=== PATIENT | male | born 1955 | race Caucasian/White ===

== ENCOUNTER 2019-05-12 08:26 | Observation (INO) | payer BC, OTHER ==
[~2019-05-12 08:26] MED LIST: CEFAZOLIN 2 GM/50 ML (PMX) 50 ML IVPB; LACTATED RINGER'S 1,000 ML IV
[2019-05-12] MEDS ORDERED: MIDAZOLAM 1 MG/ML 2 ML INJ (11:43)
[2019-05-12] MEDS: POLYMYXIN/BACITRACIN 1L IRRIG (12:51)
[2019-05-12] MEDS: GELATIN SIZE 100 SPONGE (12:51)
[2019-05-12] MEDS: BUPIVACAINE 0.5%/EPI (SDV) 30 ML INJ (12:51)
[2019-05-12] MEDS: THROMBIN 5000 UNIT (RECOTHROM) VIAL ×2 (12:51→15:03)
[2019-05-12] MEDS ORDERED: morphine 10 MG INJ (13:44)
[2019-05-12] MEDS ORDERED: PHENYLephrine 10 MG INJ (14:28)
[2019-05-12] MEDS ORDERED: PROPOFOL 20 ML (14:48)
[2019-05-12] MEDS ORDERED: LIDOCAINE 2% (SDV) 5 ML INJ (14:48)
[2019-05-12] MEDS ORDERED: ETOMIDATE 20 MG INJ (14:48)
[2019-05-12] MEDS ORDERED: CEFAZOLIN 1 GM INJ (15:10)
[2019-05-12] MEDS ORDERED: GLYCOPYRROLATE 0.4 MG INJ (15:10)
[2019-05-12] MEDS ORDERED: ONDANSETRON 4 MG INJ (15:10)
[2019-05-12] MEDS ORDERED: NEOSTIGMINE 3 MG/3 ML SYRINGE (15:10)
[2019-05-12] MEDS ORDERED: HYDROmorphONE 0.5 MG/0.5 ML SYG IV (15:30)
[2019-05-12] MEDS ORDERED: NALOXONE (0.4 MG/ML) INJ IV (15:30)
[2019-05-12] MEDS ORDERED: NACL 0.9% 3 ML SYG IV (15:30)
[2019-05-12] MEDS ORDERED: FENTAnyl 50 MCG/ML VIAL IV (15:30)
[2019-05-12] MEDS ORDERED: ONDANSETRON 4 MG INJ IV (15:30)
[2019-05-12] MEDS ORDERED: DIPHENHYDRAMINE 50 MG INJ IV (15:30)
[2019-05-12] MEDS ORDERED: MEPERIDINE 25 MG INJ IV (15:30)
[2019-05-12] MEDS ORDERED: METOCLOPRAMIDE 10 MG INJ IV (15:30)
[2019-05-12] MEDS ORDERED: ACETAMINOPHEN 325 MG TAB PO (15:30)
[2019-05-12 15:59] LABS: HAAIG REFLEX REFLEX FILED
[2019-05-12 17:05] LABS: HEPATITIS B SURFACE ANTIGEN NEGATIVE (NEGATIVE)
[2019-05-12 17:22] LABS: HEPATITIS B CORE ANTIBODY NEGATIVE (NEGATIVE); HEPATITIS C VIRAL ANTIBODY NEGATIVE (NEGATIVE); HIV 1&2 ANTIBODY NEGATIVE (NEGATIVE)
[2019-05-12] MEDS: CEFAZOLIN 1 GM/50 ML (PMX) 50 ML IVPB (17:56)
[2019-05-12] MEDS: hydrALAzine 20 MG INJ IV ×2 (17:56→18:32)
[2019-05-12] MEDS: HYDROmorphONE 1 MG/5 ML IV SYRINGE IV ×3 (18:34→19:26)
[2019-05-12] MEDS: LABETALOL HCL 20MG INJ IV ×3 (18:49→19:24)
[2019-05-12] MEDS: DESMOPRESSIN 0.01% 5 ML NASAL NASAL (19:16)
[2019-05-12] MEDS ORDERED: DEXTROSE 50% 50 ML SYRINGE IV ×2 (20:00)
[2019-05-12] MEDS ORDERED: GLUCAGON 1 MG INJ IM (20:00)
[2019-05-12] MEDS ORDERED: GLUCOSE GEL 15 GRAM TUBE PO ×2 (20:00)
[2019-05-12] MEDS ORDERED: GLUCOSE GEL 15 GRAM TUBE BUCCAL (20:00)
[2019-05-12 20:37] LABS: ADD MAN DIFF? NO
[2019-05-12 20:40] LABS: BASOPHIL # 0.1 10^3/ul (0.0-0.1); BASOPHILS % 0.7 % (0.0-2.0); EOSINOPHILS % 0.2 % (0.0-7.0); HEMATOCRIT 53.8 % (42.0-52.0); HEMOGLOBIN 17.5 g/dl (14.0-18.0); LYMPHOCYTES # 1.1 10^3/ul (0.8-2.9); LYMPHOCYTES % 8.1 % (15.0-51.0); MEAN CORPUSCULAR HEMOGLOBIN 27.9 pg (29.0-33.0); MEAN CORPUSCULAR HGB CONC 32.5 g/dl (32.0-37.0); MEAN CORPUSCULAR VOLUME 85.7 fl (82.0-101.0); MONOCYTE # 1.3 10^3/ul (0.3-0.9); MONOCYTES % 9.1 % (0.0-11.0); NEUTROPHIL # 11.2 10^3/ul (1.6-7.5); NEUTROPHILS % 81.2 % (39.0-77.0); PLATELET COUNT 153 10^3/UL (140-415); RED BLOOD COUNT 6.28 10^6/ul (4.70-6.10); RED CELL DISTRIBUTION WIDTH 15.2 % (11.5-14.5)
[2019-05-12 20:40] LABS: WHITE BLOOD COUNT 13.8 10^3/ul (4.8-10.8)
[2019-05-12 20:56] LABS: ANION GAP 8 (5-13); BLOOD UREA NITROGEN 24 mg/dl (7-20); CARBON DIOXIDE 31 mmol/L (21-31); CHLORIDE 100 mmol/L (97-110); CREATININE 1.46 mg/dl (0.61-1.24); GLUCOSE 192 mg/dl (70-220); POTASSIUM 3.3 mmol/L (3.5-5.1); SODIUM 139 mmol/L (135-144)
[2019-05-12 20:57] LABS: ALANINE AMINOTRANSFERASE 133 IU/L (13-69); ALBUMIN 3.9 g/dl (3.3-4.9); ALBUMIN/GLOBULIN RATIO 1.39; ALKALINE PHOSPHATASE 122 IU/L (42-121); ASPARTATE AMINO TRANSFERASE 190 IU/L (15-46); BILIRUBIN,INDIRECT 0.8 mg/dl (0-1.1); BILIRUBIN,TOTAL 0.8 mg/dl (0.2-1.3); CALCIUM 8.7 mg/dl (8.4-10.2); Estimated GFR 49 mL/min (>60); TOTAL PROTEIN 6.7 g/dl (6.1-8.1)
[2019-05-12] MEDS: INSULIN ASPART [NOVOLOG] 3 ML PEN SC (21:00)
[2019-05-12] MEDS: NEBIVOLOL 5 MG TAB PO (21:00)
[2019-05-12] MEDS: ATORVASTATIN 10 MG TAB PO (21:24)
[2019-05-12] MEDS: AMLODIPINE 10 MG TAB PO (21:26)
[2019-05-12] MEDS: SOD CHLORIDE 0.45% 1,000 ML IV (21:27)
[2019-05-12] MEDS: HYDROCORTISONE 100 MG INJ IV (21:27)
[2019-05-12] MEDS: LOSARTAN 50 MG TAB PO (21:28)
[2019-05-12] MEDS: HYDROCORTISONE 5 MG TAB PO (21:29)
[2019-05-12] MEDS: PROCHLORPERAZINE 10 MG TAB PO (21:29)
[2019-05-12] MEDS: ONDANSETRON 4 MG INJ IV (21:55)
[2019-05-12] MEDS: INSULIN GLARGINE [LANTus] (100 UNITS/ML) SYG SC (22:43)
[2019-05-13] MEDS: CEFAZOLIN 1 GM/50 ML (PMX) 50 ML IVPB ×3 (00:17→11:13)
[2019-05-13] MEDS: 1/2 NS + KCL 20 MEQ 1,000 ML IV (04:24)
[2019-05-13 05:37] LABS: HEMOGLOBIN 16.2 g/dl (14.0-18.0)
[2019-05-13 06:07] LABS: ALANINE AMINOTRANSFERASE 96 IU/L (13-69); ALBUMIN 3.5 g/dl (3.3-4.9); ALBUMIN/GLOBULIN RATIO 1.34; ALKALINE PHOSPHATASE 93 IU/L (42-121); ANION GAP 8 (5-13); ASPARTATE AMINO TRANSFERASE 69 IU/L (15-46); BILIRUBIN,INDIRECT 0.8 mg/dl (0-1.1); BILIRUBIN,TOTAL 0.8 mg/dl (0.2-1.3); BLOOD UREA NITROGEN 26 mg/dl (7-20); CALCIUM 8.4 mg/dl (8.4-10.2); CARBON DIOXIDE 33 mmol/L (21-31); CHLORIDE 98 mmol/L (97-110); CREATININE 1.41 mg/dl (0.61-1.24); Estimated GFR 51 mL/min (>60); GLUCOSE 219 mg/dl (70-220); POTASSIUM 3.3 mmol/L (3.5-5.1); SODIUM 139 mmol/L (135-144); TOTAL PROTEIN 6.1 g/dl (6.1-8.1)
[2019-05-13] MEDS: LEVOTHYROXINE 175 MCG TAB PO (06:23)
[2019-05-13] MEDS: INSULIN ASPART [NOVOLOG] 3 ML PEN SC ×6 (09:02→20:21)
[2019-05-13] MEDS: HYDROCORTISONE 5 MG TAB PO ×2 (09:12→20:20)
[2019-05-13] MEDS: CHLORTHALIDONE 25 MG TAB PO (09:13)
[2019-05-13] MEDS: DOCUSATE SODIUM 100 MG CAP PO ×2 (09:13→20:19)
[2019-05-13] MEDS: AMLODIPINE 10 MG TAB PO (09:14)
[2019-05-13] MEDS: INSULIN GLARGINE [LANTus] (100 UNITS/ML) SYG SC ×2 (09:16→20:22)
[2019-05-13] MEDS: DESMOPRESSIN 0.01% 5 ML NASAL NASAL (09:17)
[2019-05-13] MEDS: POTASSIUM CHLORIDE (SR) 20 MEQ TAB PO (10:41)
[2019-05-13 10:46] LABS: HEMOGLOBIN A1C 8.1 % (0-5.9)
[2019-05-13] MEDS: HYDROCODONE/APAP (5/325) TAB PO ×3 (13:05→18:26)
[2019-05-13] MEDS: AL HYDROX/MG HYDROX/SIMETH 30 ML CUP PO (13:05)
[2019-05-13] MEDS: LOSARTAN 50 MG TAB PO (20:19)
[2019-05-13] MEDS: ATORVASTATIN 10 MG TAB PO (20:20)
[2019-05-13] MEDS: NEBIVOLOL 5 MG TAB PO (20:20)
[2019-05-14] MEDS: HYDROCODONE/APAP (5/325) TAB PO ×5 (02:37→21:39)
[2019-05-14 05:07] LABS: ADD MAN DIFF? NO
[2019-05-14 05:13] LABS: BASOPHIL # 0.1 10^3/ul (0.0-0.1); BASOPHILS % 0.8 % (0.0-2.0); EOSINOPHILS # 0.1 10^3/ul (0.0-0.5); EOSINOPHILS % 0.6 % (0.0-7.0); HEMATOCRIT 46.5 % (42.0-52.0); HEMOGLOBIN 15.1 g/dl (14.0-18.0); LYMPHOCYTES # 1.5 10^3/ul (0.8-2.9); LYMPHOCYTES % 10.6 % (15.0-51.0); MEAN CORPUSCULAR HEMOGLOBIN 27.9 pg (29.0-33.0); MEAN CORPUSCULAR HGB CONC 32.5 g/dl (32.0-37.0); MEAN PLATELET VOLUME 12.4 fl (7.4-10.4); MONOCYTE # 1.4 10^3/ul (0.3-0.9); MONOCYTES % 9.6 % (0.0-11.0); NEUTROPHIL # 10.9 10^3/ul (1.6-7.5); NEUTROPHILS % 77.8 % (39.0-77.0); PLATELET COUNT 149 10^3/UL (140-415); RED BLOOD COUNT 5.41 10^6/ul (4.70-6.10); RED CELL DISTRIBUTION WIDTH 14.9 % (11.5-14.5)
[2019-05-14 05:33] LABS: ALANINE AMINOTRANSFERASE 61 IU/L (13-69); ALBUMIN 3.2 g/dl (3.3-4.9); ALBUMIN/GLOBULIN RATIO 1.23; ALKALINE PHOSPHATASE 72 IU/L (42-121); ANION GAP 4 (5-13); ASPARTATE AMINO TRANSFERASE 34 IU/L (15-46); BILIRUBIN,INDIRECT 1.1 mg/dl (0-1.1); BILIRUBIN,TOTAL 1.1 mg/dl (0.2-1.3); BLOOD UREA NITROGEN 31 mg/dl (7-20); CALCIUM 8.1 mg/dl (8.4-10.2); CARBON DIOXIDE 33 mmol/L (21-31); CHLORIDE 97 mmol/L (97-110); CREATININE 1.26 mg/dl (0.61-1.24); Estimated GFR 58 mL/min (>60); GLUCOSE 129 mg/dl (70-220); POTASSIUM 3.5 mmol/L (3.5-5.1); SODIUM 134 mmol/L (135-144); TOTAL PROTEIN 5.8 g/dl (6.1-8.1)
[2019-05-14] MEDS: INSULIN ASPART [NOVOLOG] 3 ML PEN SC ×7 (08:30→21:00)
[2019-05-14] MEDS: AMLODIPINE 10 MG TAB PO (08:57)
[2019-05-14] MEDS: DOCUSATE SODIUM 100 MG CAP PO ×2 (08:57→21:30)
[2019-05-14] MEDS: HYDROCORTISONE 5 MG TAB PO ×2 (08:58→21:29)
[2019-05-14] MEDS: CHLORTHALIDONE 25 MG TAB PO (08:58)
[2019-05-14] MEDS: DESMOPRESSIN 0.01% 5 ML NASAL NASAL (08:59)
[2019-05-14] MEDS: INSULIN GLARGINE [LANTus] (100 UNITS/ML) SYG SC ×2 (10:33→21:40)
[2019-05-14] MEDS: LEVOTHYROXINE 175 MCG TAB PO (10:34)
[2019-05-14] MEDS: POTASSIUM CHLORIDE (SR) 20 MEQ TAB PO (13:12)
[2019-05-14] MEDS: AL HYDROX/MG HYDROX/SIMETH 30 ML CUP PO (17:57)
[2019-05-14] MEDS: NEBIVOLOL 5 MG TAB PO (21:29)
[2019-05-14] MEDS: ATORVASTATIN 10 MG TAB PO (21:30)
[2019-05-14] MEDS: LOSARTAN 50 MG TAB PO (21:30)
[2019-05-15] MEDS: HYDROCODONE/APAP (5/325) TAB PO ×2 (05:13→12:36)
[2019-05-15] MEDS: LEVOTHYROXINE 175 MCG TAB PO (05:20)
[2019-05-15 05:24] LABS: ADD MAN DIFF? NO
[2019-05-15 05:33] LABS: WHITE BLOOD COUNT 14.3 10^3/ul (4.8-10.8)
[2019-05-15 05:33] LABS: BASOPHIL # 0.1 10^3/ul (0.0-0.1); BASOPHILS % 0.8 % (0.0-2.0); EOSINOPHILS # 0.1 10^3/ul (0.0-0.5); EOSINOPHILS % 0.9 % (0.0-7.0); HEMATOCRIT 50.2 % (42.0-52.0); HEMOGLOBIN 16.2 g/dl (14.0-18.0); LYMPHOCYTES # 1.9 10^3/ul (0.8-2.9); LYMPHOCYTES % 12.9 % (15.0-51.0); MEAN CORPUSCULAR HEMOGLOBIN 27.8 pg (29.0-33.0); MEAN CORPUSCULAR HGB CONC 32.3 g/dl (32.0-37.0); MEAN CORPUSCULAR VOLUME 86.1 fl (82.0-101.0); MEAN PLATELET VOLUME 12.9 fl (7.4-10.4); MONOCYTE # 1.5 10^3/ul (0.3-0.9); MONOCYTES % 10.3 % (0.0-11.0); NEUTROPHIL # 10.6 10^3/ul (1.6-7.5); NEUTROPHILS % 74.4 % (39.0-77.0); PLATELET COUNT 162 10^3/UL (140-415); RED BLOOD COUNT 5.83 10^6/ul (4.70-6.10); RED CELL DISTRIBUTION WIDTH 14.8 % (11.5-14.5)
[2019-05-15 06:16] LABS: ALBUMIN 3.6 g/dl (3.3-4.9); ANION GAP 7 (5-13); BLOOD UREA NITROGEN 31 mg/dl (7-20); CALCIUM 8.8 mg/dl (8.4-10.2); CARBON DIOXIDE 33 mmol/L (21-31); CHLORIDE 95 mmol/L (97-110); GLUCOSE 94 mg/dl (70-220); PHOSPHORUS 3.2 mg/dl (2.5-4.9); POTASSIUM 3.3 mmol/L (3.5-5.1); SODIUM 135 mmol/L (135-144)
[2019-05-15] MEDS: INSULIN ASPART [NOVOLOG] 3 ML PEN SC ×4 (07:30→13:13)
[2019-05-15] MEDS: HYDROCORTISONE 5 MG TAB PO (09:16)
[2019-05-15] MEDS: DOCUSATE SODIUM 100 MG CAP PO (09:16)
[2019-05-15] MEDS: AMLODIPINE 10 MG TAB PO (09:17)
[2019-05-15] MEDS: CHLORTHALIDONE 25 MG TAB PO (09:18)
[2019-05-15] MEDS: DESMOPRESSIN 0.01% 5 ML NASAL NASAL (09:18)
[2019-05-15] MEDS: INSULIN GLARGINE [LANTus] (100 UNITS/ML) SYG SC (09:20)
[2019-05-15] MEDS: POTASSIUM CHLORIDE (SR) 20 MEQ TAB PO (09:46)
== END 2019-05-15 16:00 | disposition home or self-care (01) ==
LOC: SDS 08:26 → REC 15:12 → MS1 20:00
PROVIDERS: Orthopaedic Surgery
DX: M48.061 Spinal stenosis, lumbar region without neurogenic claudication (principal); M51.16 Intervertebral disc disorders with radiculopathy, lumbar region; E66.01 Morbid (severe) obesity due to excess calories; Z68.37 Body mass index [BMI] 37.0-37.9, adult; E11.9 Type 2 diabetes mellitus without complications; N17.9 Acute kidney failure, unspecified; R74.0 Nonspecific elevation of levels of transaminase and lactic acid dehydrogenase [LDH]; E03.9 Hypothyroidism, unspecified; I10 Essential (primary) hypertension; D75.1 Secondary polycythemia; D69.6 Thrombocytopenia, unspecified; G47.33 Obstructive sleep apnea (adult) (pediatric); E29.1 Testicular hypofunction; Z79.4 Long term (current) use of insulin
CPT/HCPCS: 63030; 72100; 80053; 80069; 82962; 83036; 83735; 85014; 85018; 85025; 86703; 86704; 86709; 86803; 87340; 88304; 97116; 97162; 97530